=== PATIENT | male | born 1960 | race Caucasian/White ===

== ENCOUNTER 2019-01-30 08:20 | Day surgery (SDC) | payer OTHER ==
[~2019-01-30] VITALS: Ht 172.7 cm; Wt 124.7 kg
[~2019-01-30 08:20] MED LIST: AMLO10 PO; ASPI81CH PO; BASAGLAR K100 UNIT/2 SC; CHOLP PO; DICL25ER; DICL25ER EXT; DICL75ER PO; FLUR100; GLIP10 PO; HYDACE5 PO; INSDET100; LISHYD2012 PO; LOSARTAN-HCTZ1 EACH PO; NOVOLOG100 UNIT/1 SC; OXYACE5T PO; PENVK500; SIMV40 PO; TRAM50 PO; VITAMIN D32000 UNI3 PO; ZOLP10 PO; ZOLP5 PO
[2019-01-30] MEDS ORDERED: TRAM50 PO (09:56)
--- NOTE | 2019-01-30 10:26 | NUR ---
01/30/19 1026 DIANN BLAKE History, Chart, Medications and Allergies reviewed before start of procedure.3-LEAD EKG REVIEWED WITH PHYSICIAN PRIOR TO START OF PROCEDURE.O2 VIA N/C INTACT THROUGHOUT SEDATION/PROCEDURE. MONITOR INTACT WITH CONTINUOUS PULSE OXIMETRY AND INTERMITTENT BP.
--- NOTE | 2019-01-30 11:17 | NUR ---
0930 Ambulatory in Day Surgery History, Chart, Medications and Allergies reviewed before start of procedure.Lungs clear T/O to Auscultation. Patient confirms NPO status and agrees with scheduled surgery. Patient States Post-Procedure ride home has been arranged. Patient states colon prep results clear.
--- NOTE | 2019-01-30 11:20 | NUR ---
1120 AWAKE. TOLERATING PO CRACKERS AND JUICE. D/C INSTRUCTIONS GIVEN. AT BEDSIDE.
== END 2019-01-30 23:09 | disposition home or self-care (01) ==
LOC: ORSCMMR 08:20 → ORD 10:00 → ORSCMMR 10:00
PROVIDERS: Internal Medicine Gastroenterology
PROC: 0DBM8ZX Excision of Descending Colon, Via Natural or Artificial Opening Endoscopic, Diagnostic (ICD-10-PCS; principal; 2019-01-30 10:00)
PROC: 0DBL8ZX Excision of Transverse Colon, Via Natural or Artificial Opening Endoscopic, Diagnostic (ICD-10-PCS; principal; 2019-01-30 10:00)
PROC: 0DBN8ZX Excision of Sigmoid Colon, Via Natural or Artificial Opening Endoscopic, Diagnostic (ICD-10-PCS; principal; 2019-01-30 10:00)
DX: Z12.11 Encounter for screening for malignant neoplasm of colon (principal); D12.4 Benign neoplasm of descending colon; D12.5 Benign neoplasm of sigmoid colon; I10 Essential (primary) hypertension; E78.1 Pure hyperglyceridemia; E11.9 Type 2 diabetes mellitus without complications; E66.9 Obesity, unspecified; Z68.41 Body mass index [BMI] 40.0-44.9, adult; Z79.82 Long term (current) use of aspirin; Z79.4 Long term (current) use of insulin; Z79.899 Other long term (current) drug therapy
CPT/HCPCS: 82947; 88305; J2250; J3010; J7120

== ENCOUNTER 2020-06-23 11:43 | Emergency (ER) | payer OTHER ==
[~2020-06-23] VITALS: Ht 180.3 cm; Wt 122.5 kg
[~2020-06-23 11:43] MED LIST changes: -ASPI81CH PO; +Aspirin EC81 MG PO
[2020-06-23 12:21] LABS: BASOPHILS ABSOLUTE AUTO 0.05 K/mm3 (0.00-0.23); BASOPHILS PERCENT AUTO 0 % (0-2); EOSINOPHILS ABSOLUTE AUTO 0.02 K/mm3 (0.00-0.68); EOSINOPHILS PERCENT AUTO 0 % (0-6); Hemoglobin 14.3 g/dL (13.5-17.5); IMMATURE GRAN ABSOLUTE AUTO 0.34 K/mm3 (0.00-0.10); IMMATURE GRAN PERCENT AUTO 2 % (0-1); LYMPHOCYTES ABSOLUTE AUTO 1.34 K/mm3 (0.84-5.20); LYMPHOCYTES PERCENT AUTO 6 % (21-46); MONOCYTES ABSOLUTE AUTO 1.93 K/mm3 (0.16-1.47); MONOCYTES PERCENT AUTO 8 % (4-13); Mean Corpuscular HGB 29.7 pg (26.0-34.0); Mean Corpuscular Volume 87 fL (80-100); Mean Platelet Volume 11.8 fL (9.1-12.4); NEUTROPHILS ABSOLUTE AUTO 19.65 K/mm3 (1.96-9.15); NEUTROPHILS PERCENT AUTO 84 % (41-73); Platelet Count 198 K/mm3 (150-400); RDW Coefficient Variation 11.9 % (11.7-14.2); RDW Standard Deviation 38.3 fL (35.1-46.3); Red Blood Cell Count 4.82 M/mm3 (4.30-5.90); White Blood Cell Count 23.33 K/mm3 (4.00-11.30)
[2020-06-23 12:32] LABS: Alanine Aminotransfer (ALT/SGP 21 U/L (12-78); Albumin, Blood 3.3 g/dL (3.4-5.0); Albumin/Globulin Ratio 0.8 (0.8-1.8); Alk Phos 73 U/L (50-136); Anion Gap 6 mmol/L (6-16); Aspartate Aminotrans (AST/SGOT 12 U/L (12-37); Bilirubin, Total 1.3 mg/dL (0.1-1.0); Blood Urea Nitrogen 16 mg/dL (8-24); Bun/Creatinine Ratio 15.2 (12.0-20.0); CO2, Blood 26 mmol/L (21-32); Calcium, Blood 9.1 mg/dL (8.5-10.1); Chloride, Blood 99 mmol/L (98-108); Creatinine, Blood 1.05 mg/dL (0.60-1.20); Globulin, Blood 4.2 g/dL (2.2-4.0); Glomerular Filtration Rate >60 (60-); Glucose, Blood 237 mg/dL (70-99); Potassium, Blood 3.9 mmol/L (3.5-5.5); Sodium, Blood 131 mmol/L (136-145); Total Protein, Blood 7.5 g/dL (6.4-8.2)
[2020-06-23] MEDS ORDERED: CEPH500 PO (17:12)
[2020-06-23] MEDS ORDERED: SULTRIDS PO (17:19)
[2020-06-23 18:12] LABS: Source, Urine Clean Catch
[2020-06-23 18:31] LABS: Bilirubin, Urine Neg (Neg); Blood, Urine 1+ (Neg); Glucose Qualitative, Urine 2+ (Neg); Ketones, Urine 3+ (Neg); Leukocyte Esterase, Urine 1+ (Neg); Nitrite, Urine Neg (Neg); Protein, Urine 3+ (Neg); Specific Gravity, Urine 1.015 (1.003-1.022); Urobilinogen, Urine NORM (Normal)
[2020-06-23 18:41] LABS: Appearance, Urine Hazy (Clear); Color, Urine Yellow (P-Yellow)
[2020-06-23 18:43] LABS: Bacteria Mod /hpf; Red Blood Cells, Urine 0-2 /hpf (0-2); Squamous Epithelial Cells Rare /hpf (Few); White Blood Cells, Urine 0-2 /hpf (0-5)
[2020-06-24] MEDS ORDERED: Cleocin HCl300 MG PO (09:44)
== END 2020-06-23 18:33 | disposition home or self-care (01) ==
LOC: ER 11:43
PROVIDERS: Physician Assistant
DX: N49.9 Inflammatory disorder of unspecified male genital organ (principal); E11.9 Type 2 diabetes mellitus without complications; Z87.891 Personal history of nicotine dependence
CPT/HCPCS: 36415; 74177; 76870; 80053; 81001; 83605; 85025; 87086; 96365; 96366; 96367; 99284-25; A9270; J0295; J2543; J3370; J7030; J7050; Q9967

== ENCOUNTER 2020-06-25 10:21 | Inpatient (IN) | payer OTHER ==
[~2020-06-25] VITALS: Ht 172.7 cm; Wt 126.9 kg
[~2020-06-25 10:21] MED LIST changes: +CEPH500 PO; +Cleocin HCl300 MG PO; +SULTRIDS PO
[2020-06-25 11:14] LABS: BASOPHILS ABSOLUTE AUTO 0.06 K/mm3 (0.00-0.23); BASOPHILS PERCENT AUTO 0 % (0-2); EOSINOPHILS ABSOLUTE AUTO 0.12 K/mm3 (0.00-0.68); EOSINOPHILS PERCENT AUTO 1 % (0-6); Hematocrit 37.7 % (37.0-53.0); Hemoglobin 12.8 g/dL (13.5-17.5); IMMATURE GRAN ABSOLUTE AUTO 0.29 K/mm3 (0.00-0.10); IMMATURE GRAN PERCENT AUTO 2 % (0-1); LYMPHOCYTES ABSOLUTE AUTO 1.24 K/mm3 (0.84-5.20); LYMPHOCYTES PERCENT AUTO 7 % (21-46); MONOCYTES ABSOLUTE AUTO 1.27 K/mm3 (0.16-1.47); MONOCYTES PERCENT AUTO 7 % (4-13); Mean Corpuscular HGB 29.8 pg (26.0-34.0); Mean Corpuscular Volume 88 fL (80-100); Mean Platelet Volume 11.6 fL (9.1-12.4); NEUTROPHILS ABSOLUTE AUTO 15.41 K/mm3 (1.96-9.15); NEUTROPHILS PERCENT AUTO 84 % (41-73); Platelet Count 224 K/mm3 (150-400); RDW Coefficient Variation 12.2 % (11.7-14.2); RDW Standard Deviation 39.5 fL (35.1-46.3); White Blood Cell Count 18.39 K/mm3 (4.00-11.30)
[2020-06-25 11:57] LABS: Alanine Aminotransfer (ALT/SGP 22 U/L (12-78); Albumin, Blood 2.7 g/dL (3.4-5.0); Albumin/Globulin Ratio 0.6 (0.8-1.8); Alk Phos 95 U/L (50-136); Anion Gap 7 mmol/L (6-16); Aspartate Aminotrans (AST/SGOT 14 U/L (12-37); Bilirubin, Total 0.6 mg/dL (0.1-1.0); Blood Urea Nitrogen 26 mg/dL (8-24); Bun/Creatinine Ratio 21.5 (12.0-20.0); CO2, Blood 24 mmol/L (21-32); Calcium, Blood 8.4 mg/dL (8.5-10.1); Chloride, Blood 101 mmol/L (98-108); Creatinine, Blood 1.21 mg/dL (0.60-1.20); Globulin, Blood 4.4 g/dL (2.2-4.0); Glomerular Filtration Rate >60 (60-); Glucose, Blood 207 mg/dL (70-99); Potassium, Blood 3.7 mmol/L (3.5-5.5); Sodium, Blood 132 mmol/L (136-145); Total Protein, Blood 7.1 g/dL (6.4-8.2)
[2020-06-25 11:59] LABS: C-REACTIVE PROTEIN, EXT RANGE >19.000 mg/dL (0.000-0.300)
[2020-06-25] MEDS ORDERED: DICLOFENAC SOD100 G1 TOP (13:13)
[2020-06-25] MEDS ORDERED: LOSARTAN-HCTZ1 EACH PO (13:14)
[2020-06-25] MEDS ORDERED: TAMSULOSIN HCL0.4 M1 PO (13:14)
[2020-06-25] MEDS ORDERED: INSULIN AS100 UNIT/7 SC (13:14)
[2020-06-25] MEDS ORDERED: INSULANPEN SC (13:15)
[2020-06-25] MEDS ORDERED: SEMGLEE PE100 UNIT/1 PO (13:15)
[2020-06-25] MEDS ORDERED: ZOLPIDEM TARTRA10 MG PO (13:16)
[2020-06-25 14:58] LABS: Influenza A, PCR NEGATIVE (NEGATIVE); Influenza B, PCR NEGATIVE (NEGATIVE); Resp Syncytial Virus, PCR NEGATIVE (NEGATIVE); SARS-Cov-2 (COVID-19) PCR, MMC NEGATIVE (NEGATIVE)
--- NOTE | 2020-06-25 17:06 | NUR ---
SHIFT SUMMARY 1425 RECEIVED PT TO RM 303 FROM ER. PT IS A&O, PLEASANT AND CO-OP. ABLE TO TX SELF TO BED. INDEPENDENT TO BTHRM. PT ADMITTED FOR SEPSIS R/T SCROTAL ABSCESS. RECEIVED REPORT FROM LASHELL GREGORIO, PT WITH BL HYDROCELES. PT HAS REMAINED NPO TO PRESENT SINCE 10:00 THIS AM. PT TO BE TAKEN FOR SX SHORTLY. IV VANCO AND ZOSYN GIVEN IN ER. IVF'S STARTED PER EMAR. PT'S MOTHER TO RM TO VISIT PRIOR TO SX. DENIED FURTHER NEEDS. CALL LT IN REACH.
--- NOTE | 2020-06-25 17:22 | NUR ---
PT TX'D SELF TO [facility] TO BE TAKEN TO OR FOR I&D. SCROTUM RED AND SWOLLEN TO SIZE OF CANTELOPE. DR REEVES TO PROVIDE PROCEDURE.
--- NOTE | 2020-06-25 17:37 | NUR ---
INTO [facility]IA [facility] FROM [facility]. PT ABLE TO AMBULATE STEADY GAIT TO [facility]. History, Chart, Medications and Allergies reviewed before start of procedure.Patient confirms NPO status SINCE 1000 ON 06/25/20 and agrees with scheduled surgery. Lungs clear T/O to Auscultation.
--- NOTE | 2020-06-25 17:44 | NUR ---
REPORT GIVEN TO DIANN GREGORIO
--- NOTE | 2020-06-26 04:03 | NUR ---
SHIFT SUMMARY PT RETURNED VIA GURNEY FROM OR APPROX. 1999. SEVERE SWELLING TO SCROTUM NOTED WITH KACEY DRAIN IN PLACE, DRESSING C/D/I AT THIS TIME. IV ABX GIVEN T/O SHIFT. C/O PAIN X1, MEDICATED PER EMAR. PT REFUSING Q6 BLOOD SUGARS AND COVERAGE, INVOICING SPECIALIST PROVIDER NOTIFIED. PT TOLERATING DIET. NO ISSUES VOIDING. VSS, NO ACUTE CHANGES AT THIS TIME. BED IN LOWEST POSITION WITH CALL LIGHT IN REACH. WILL CONTINUE TO MONITOR AND REPORT TO ONCOMING RN.
[2020-06-26 04:26] LABS: BASOPHILS ABSOLUTE AUTO 0.05 K/mm3 (0.00-0.23); BASOPHILS PERCENT AUTO 0 % (0-2); EOSINOPHILS ABSOLUTE AUTO 0.07 K/mm3 (0.00-0.68); EOSINOPHILS PERCENT AUTO 0 % (0-6); Hematocrit 35.8 % (37.0-53.0); IMMATURE GRAN ABSOLUTE AUTO 0.33 K/mm3 (0.00-0.10); IMMATURE GRAN PERCENT AUTO 2 % (0-1); LYMPHOCYTES PERCENT AUTO 10 % (21-46); MONOCYTES ABSOLUTE AUTO 1.33 K/mm3 (0.16-1.47); MONOCYTES PERCENT AUTO 8 % (4-13); Mean Corpuscular HGB 29.4 pg (26.0-34.0); Mean Corpuscular HGB Conc 33.5 g/dL (31.5-36.5); Mean Corpuscular Volume 88 fL (80-100); NEUTROPHILS ABSOLUTE AUTO 12.51 K/mm3 (1.96-9.15); NEUTROPHILS PERCENT AUTO 79 % (41-73); Platelet Count 246 K/mm3 (150-400); RDW Coefficient Variation 12.3 % (11.7-14.2); RDW Standard Deviation 39.8 fL (35.1-46.3); Red Blood Cell Count 4.08 M/mm3 (4.30-5.90); White Blood Cell Count 15.89 K/mm3 (4.00-11.30)
[2020-06-26 04:47] LABS: Alanine Aminotransfer (ALT/SGP 18 U/L (12-78); Albumin, Blood 2.4 g/dL (3.4-5.0); Albumin/Globulin Ratio 0.6 (0.8-1.8); Alk Phos 92 U/L (50-136); Anion Gap 6 mmol/L (6-16); Aspartate Aminotrans (AST/SGOT 10 U/L (12-37); Bilirubin, Total 0.5 mg/dL (0.1-1.0); Blood Urea Nitrogen 21 mg/dL (8-24); Bun/Creatinine Ratio 16.4 (12.0-20.0); CO2, Blood 26 mmol/L (21-32); Calcium, Blood 8.1 mg/dL (8.5-10.1); Chloride, Blood 103 mmol/L (98-108); Creatinine, Blood 1.28 mg/dL (0.60-1.20); Globulin, Blood 4.3 g/dL (2.2-4.0); Glomerular Filtration Rate >60 (60-); Glucose, Blood 156 mg/dL (70-99); Magnesium, Blood 2.1 mg/dL (1.6-2.4); Potassium, Blood 3.6 mmol/L (3.5-5.5); Sodium, Blood 135 mmol/L (136-145); Total Protein, Blood 6.7 g/dL (6.4-8.2)
--- NOTE | 2020-06-26 18:45 | NUR ---
SHIFT SUMMARY PT AXO PLEASANT AND COOPERATIVE WITH CARE. VSS. PT MEDICATED FOR PAIN PER EMAR. IV PATENT AND INFUSING PER EMAR. DRESSING CHANGE TO POSTERIOR SCROTUM X2 AND SCROTUM SLINGED WITH PILLOWCASE. PT REPORTS DIARRHEA. NO OTHER CHANGES THIS SHIFT. PT UP AD CHIQUI WITH STEADY GAIT IN ROOM. BED IN LOW POSITION, CALL LIGHT WITHIN REACH.
--- NOTE | 2020-06-27 05:03 | NUR ---
Rn summary: Patient is alert and oriented. Patient is able to get up independantly to the bathroom. Patient continues to have red swollen scrotum, which is grapefruit sized. Dea drain under scrotum, pt threw away drsg, new 4x4's applied with ABD pad, new mesh panties. Scrotum in sling made from pillow case which is helpful for pt self repositioning and decreased swelling. Pt receiving IV antibiotics. Medicated with oxy 5mg x2 with tylenol 650mg x1. Pt did get some relief and has been able to rest on and off. Call light in reach. Will continue to monitor and assist with needs.
[2020-06-27 10:55] LABS: Vancomycin, Trough 11.6 ug/mL (5.0-10.0)
--- NOTE | 2020-06-27 19:20 | NUR ---
SHIFT SUMMARY RAINY'S SCROTAL AREA WAS PAINFUL THIS SHIFT, PRN OXY GIVEN. INSULIN GIVEN FOR CBGS. WOUND CLEANSED AND RE-DRESSED A COUPLE TIMES. DR REEVES CAME AND ASSESSED AT BEDSIDE THIS EVENING. INDEP IN ROOM. CALL LIGHT IN REACH
--- NOTE | 2020-06-28 04:49 | NUR ---
SHIFT SUMMARY NO ACUTE CHANGES TO REPORT THIS SHIFT. PT HAS RESTED MOST OF THE NIGH. SCROTAL AREA STILL PAINFUL, MEDICATED FOR PAIN PRN PER ORDERS. WOUNDS CLEANED AND DRESS X2 THIS SHIFT. IV ANTIBIOTICS CONTINUED PER ORDERS. VITALS STABLE AND PT AFEBRILE. PLAN IS FOR DISCHARGE TODAY. PT IS AWARE OF CURRENT POC. BED IN LOWEST POSITON, CALL LIGHT WITHIN REACH.
[2020-06-28 04:56] LABS: Hematocrit 40.3 % (37.0-53.0); Hemoglobin 13.4 g/dL (13.5-17.5); Mean Corpuscular HGB 29.3 pg (26.0-34.0); Mean Corpuscular HGB Conc 33.3 g/dL (31.5-36.5); Mean Corpuscular Volume 88 fL (80-100); Mean Platelet Volume 10.9 fL (9.1-12.4); Platelet Count 299 K/mm3 (150-400); RDW Coefficient Variation 12.1 % (11.7-14.2); RDW Standard Deviation 38.9 fL (35.1-46.3); Red Blood Cell Count 4.58 M/mm3 (4.30-5.90); White Blood Cell Count 15.46 K/mm3 (4.00-11.30)
[2020-06-28 05:19] LABS: Anion Gap 5 mmol/L (6-16); Blood Urea Nitrogen 15 mg/dL (8-24); Bun/Creatinine Ratio 15.6 (12.0-20.0); CO2, Blood 28 mmol/L (21-32); Calcium, Blood 9.2 mg/dL (8.5-10.1); Chloride, Blood 101 mmol/L (98-108); Creatinine, Blood 0.96 mg/dL (0.60-1.20); Glomerular Filtration Rate >60 (60-); Glucose, Blood 120 mg/dL (70-99); Potassium, Blood 3.6 mmol/L (3.5-5.5); Sodium, Blood 134 mmol/L (136-145)
[2020-06-28 05:24] LABS: BAND PERCENT MAN 12 % (0-8); BASOPHILS PERCENT MAN 0 % (0-2); EOSINOPHILS PERCENT MAN 0 % (0-6); LYMPHOCYTES PERCENT MAN 11 % (21-46); METAMYELOCYTE ABSOLUTE MAN 0.15 K/mm3 (0.00-0.00); METAMYELOCYTE PERCENT MAN 1 % (0-0); MONOCYTES ABSOLUTE MAN 1.54 K/mm3 (0.16-1.47); MONOCYTES PERCENT MAN 10 % (4-13); MYELOCYTE ABSOLUTE MAN 0.15 K/mm3 (0.00-0.00); MYELOCYTE PERCENT MAN 1 % (0-0); SEG NEUTROPHILS PERCENT MAN 65 % (41-73); TOTAL CELLS COUNTED 100
[2020-06-28] MEDS ORDERED: OXYC5 PO (12:13)
[2020-06-28] MEDS ORDERED: CEPH500 PO (12:13)
[2020-06-28] MEDS ORDERED: VISBIOME 112.51 EACH PO (12:14)
--- NOTE | 2020-06-28 14:10 | NUR ---
DISCHARGE SUMMARY PT LEFT WITH SON VIA WHEELCHAIR TO GO HOME. PHYSICAL COPY OF OXY SCRIPT GIVEN, COPY IN CHART. PIV REMOVED, MEDS FAXED TO [facility]. PAPERWORK REVIEWED, F/U MADE WITH SURGEON AND APPT TIME AND DATE GIVEN TO PT. PT WANTED TO MAKE HIS OWN PCP APPT.
== END 2020-06-28 14:03 | disposition home health service (06) | DRG 854 ==
LOC: ER 10:21 → MEDS 13:13 → ENPENDDIS 06-28 10:38 → MEDS 06-28 14:03
PROVIDERS: Emergency Medicine; Nurse Practitioner Acute Care; Surgery; ADMIT Internal Medicine
PROC: 0J9C0ZZ Drainage of Pelvic Region Subcutaneous Tissue and Fascia, Open Approach (ICD-10-PCS; principal; 2020-06-25 17:30)
DX: A41.01 Sepsis due to Methicillin susceptible Staphylococcus aureus (principal); L03.315 Cellulitis of perineum; Z79.82 Long term (current) use of aspirin; Z79.4 Long term (current) use of insulin; Z20.822 Contact with and (suspected) exposure to COVID-19; E11.9 Type 2 diabetes mellitus without complications; W57.XXXA Bitten or stung by nonvenomous insect and other nonvenomous arthropods, initial encounter; I10 Essential (primary) hypertension; E78.5 Hyperlipidemia, unspecified
CPT/HCPCS: 0241U; 36415; 74177; 76870; 80048; 80053; 80202; 81001; 82947; 83605; 83735; 84145; 85025; 86140; 87040; 87070; 87075; 87077; 87086; 87147; 87186; 87205; 93005; 93010; 96365; 96366; 96367; 99284-25; A9270; J0295; J0360; J0690; J2250; J2405; J2543; J2704; J2765; J3010; J3370; J7030; J7050; J7120; Q9967

== ENCOUNTER 2024-09-21 07:29 | Day surgery (SDC) | payer OTHER ==
[2024-09-21] VITALS (10 sets, daily range): BP systolic 112–158; BP diastolic 54–85
[~2024-09-21] VITALS: Ht 172.7 cm; Wt 120.7 kg
[~2024-09-21 07:29] MED LIST changes: -AMLO10 PO; +AMLO5 PO; +ATEN100 PO; +ATEN25; +AZELASTINE137 MCG/01; +Bupivacaine 0.5% W/EPI 1:200000 SDV 30 ML Vial ONE; +DICLOFENAC SOD100 G1 TOP; +EPINEPhrine HCl 1 MG / ML 30ML Vial ONE; +FENO48 PO; +FENO67 PO; +FLUT.05NI; +GLIP5 PO; +HYDROCHLOROTH12.5 MG; +INSDET100 SC; +INSULANI; +INSULANPEN SC; +INSULIN AS100 UNIT/7 SC; +IPRATROPIUM BRO15 ML; +LOSA50 PO; +METPRE4DP PO; +NOVOLOG100 UNIT/3 SC; +OLME20 PO; +OXYC5 PO; +RYBELSUS3 MG PO; +Robaxin750 MG; +SEMGLEE PE100 UNIT/1 PO; +STEGLATRO5 MG PO; +TAMSULOSIN HCL0.4 M1 PO; +TIZA4 PO; +VISBIOME 112.51 EACH PO; +Vitamin D1000 UNI1 PO; +ZOLPIDEM TARTRA10 MG PO
[2024-09-21] MEDS ORDERED: CeFAZolin Sodium 3,000 MG in NS 100 ML IV SCH (07:40)
[2024-09-21] MEDS ORDERED: Tranexamic Acid 100 ML IV SCH (07:40)
[2024-09-21] MEDS ORDERED: FentaNYL Citrate 50 MCG/ML 2 ML Injection ONE (08:24)
[2024-09-21] MEDS ORDERED: Midazolam HCl 1MG / ML 2ML Vial ONE (08:24)
[2024-09-21] MEDS ORDERED: Rocuronium Bromide 10 MG/ML 5ML Injection IV ONE ×2 (08:26→10:33)
[2024-09-21] MEDS ORDERED: Bupivacaine 0.5% HCl 5 MG/ML 30MLVIAL ONE (08:27)
--- NOTE | 2024-09-21 09:07 | NUR ---
Ambulatory in Day Surgery. History, Chart, Medications and Allergies reviewed before start of procedure. Lungs clear T/O to Auscultation. Patient confirms NPO status and agrees with scheduled surgery. Pre-Op teaching done. Pt verbalizes understanding. Patient States Post-Procedure ride home has been arranged. PT [facility].
--- NOTE | 2024-09-21 09:34 | NUR ---
0917: Dr. Hernandez at bedside to perform interscalene nerve block in preop 0919: Premeds given by Dr. Hernandez, see anesthesia notes. 0923: Timeout complete by RN. 0928: Block time start. 0930: Block time end. Pt on monitors throughout procedure. VSS throughout procedure. Pt thania procedure well.
[2024-09-21] MEDS ORDERED: ePHEDrine Sulfate 50 MG/ML 1ML Injection ONE (10:07)
[2024-09-21] MEDS ORDERED: Ondansetron HCl 2 MG / ML 2ML Vial ONE (10:34)
[2024-09-21] MEDS ORDERED: Dexamethasone Sod Phos 10 MG/ML 1ML VIAL ONE (10:34)
[2024-09-21] MEDS ORDERED: Sugammadex Sodium 200 MG/2ML SDV (100 MG/ML) ONE (11:30)
== END 2024-09-21 13:15 | disposition home or self-care (01) ==
LOC: ORSCMMR 07:29 → ORD 09:00 → ORSCMMR 09:00
PROVIDERS: Orthopaedic Surgery Sports Medicine
PROC: 0RNJ4ZZ Release Right Shoulder Joint, Percutaneous Endoscopic Approach (ICD-10-PCS; principal; 2024-09-21 09:00)
PROC: 0LS34ZZ Reposition Right Upper Arm Tendon, Percutaneous Endoscopic Approach (ICD-10-PCS; principal; 2024-09-21 09:00)
DX: M75.111 Incomplete rotator cuff tear or rupture of right shoulder, not specified as traumatic (principal); M75.31 Calcific tendinitis of right shoulder; S43.431A Superior glenoid labrum lesion of right shoulder, initial encounter; I10 Essential (primary) hypertension; G62.9 Polyneuropathy, unspecified; E66.01 Morbid (severe) obesity due to excess calories; Z68.41 Body mass index [BMI] 40.0-44.9, adult; E11.9 Type 2 diabetes mellitus without complications; E78.5 Hyperlipidemia, unspecified; Z79.899 Other long term (current) drug therapy; Z79.4 Long term (current) use of insulin; Z79.85 Long-term (current) use of injectable non-insulin antidiabetic drugs; Z87.891 Personal history of nicotine dependence; Z79.82 Long term (current) use of aspirin
CPT/HCPCS: 82947; A9270; C1713; J0165; J0690; J1100; J2250; J2405; J2704; J3010; J7120